=== PATIENT | female | born 1980 | race Caucasian/White ===

== ENCOUNTER 2016-12-03 14:00 | Observation (INO) | payer MEDICAID ==
--- NOTE | 2016-12-05 15:20 | HISTORY & PHYSICAL ---
History of Present Illness (Patel Roldan M.D.; 12/03/2016 1:49 PM) The patient is a 36 year old female who presents for evaluation of pelvic pain. The onset of the pain began gradually over time and has been occurring in an intermittent pattern for years (since Essure placed). The course has been increasing (over the past few months). The pain is described as moderate and characterized as a cramp. The pain is described as being located in the suprapubic area and does not radiate. Menses: regular. There is no relation of the pain to menses. Currently : no. The symptoms are relieved by analgesics. There has been no associated anorexia, dysuria, hematuria or vaginal discharge. Previous evaluations have included ultrasound (unremarkable) , screening, sexually transmitted disease (neg) and screening, Pap smear (neg). Additional reasons for visit: Preop Visit is described as the following: The patient feels well with minor complaints. Surgical procedures include: TVH. The reason for surgery is dysmenorrhea. Date of procedure: (12/09/2016). Planned anesthesia: general anesthesia. There have been no problems with general anesthesia, blood/blood products, or surgery in the past. Cardiac risk factors include: smoking. Risk factors for post operative thromboembolism includes: smoking. In depth conversation with the patient/guardian concerning the procedure, risks, complications, benefits, alternatives, success, possible failure and need for further surgery or intervention questions were answered and no guarantees were made. Problem List/Past Medical (Patel Roldan M.D.; 12/03/2016 1:51 PM) Asthma (J45.909) mild, no meds Endocarditis (I38)2009 Subacute; Secondary to Root Canal. Treated and resolved PUD (peptic ulcer disease) (K27.9) Psoriasis (L40.9) Renal failure, acute (N17.9)2009 Resolved Substance dependence (F19.20) Sober Since 2010 Allergies (Belia Anderson RN; 12/03/2016 1:34 PM) No Known Drug Allergies Family History (Belia Anderson RN; 12/03/2016 1:34 PM) Mother CVA, Osteoporosis, Lupus, MS, Asthma, Depression, COPD, Anxiety Paternal Grandmother Lung Cancer (Smoker) Father PUD Maternal Grandmother CAD @ 80's, RA Brother Asthma, PUD Sister Depression Cerebrovascular Accident Mother. Paternal Grandfather Alzheimer's Maternal Grandfather Psoriasis, Liver Cancer, Colon Cancer Paternal Aunt DM Type 2 Social History (Belia Anderson RN; 12/03/2016 1:34 PM) Tobacco use Current every day smoker. 1ppd Alcohol use Occasional alcohol use. Illicit drug use Uses marijuana. nightly Medication History (Belia Anderson RN; 12/03/2016 1:51 PM) Zantac (150MG Tablet, 1 Oral as needed) Active. Medications Reconciled / History (Patel Roldan M.D.; 12/03/2016 1:42 PM) Abortions/Miscarriages Sab x2 Deliveries (Parity) 3023 Delivery Mode vaginal Living Children (Number Of) 3 Pregnancies () 5 Past Surgical History (Patel Roldan M.D.; 12/03/2016 1:52 PM) Dilation and Curettage of [id number] Oral [id number] Full Dentures Tubal [id number] Essure Review of Systems (Patel Roldan M.D.; 12/03/2016 1:50 PM) General Present- Feeling well. Not Present- Night Sweats and Weight Loss > 10lbs.. Skin Present- Rash (Psoriasis). HEENT Present- Corrective lenses. Neck Not Present- Neck Mass. Respiratory Not Present- Chronic Cough and Shortness of Breath. Breast Not Present- Breast Mass, Breast Pain, Nipple Discharge and Skin Changes. Cardiovascular Not Present- Chest Pain. Gastrointestinal Present- Bloating and Diarrhea (since childhood). Not Present- Abdominal Pain and Bloody Stool. Female Genitourinary Not Present- Blood in Urine, Dysuria, Frequency, Hematuria , Incontinence, Urgency, Vaginal Discharge, Vaginal itching/burning and Vulvar itching. Musculoskeletal Not Present- Joint Redness. Neurological Not Present- Focal Neurological Symptoms. Endocrine Present- Hot flashes. Hematology Not Present- DVT, Enlarged Lymph Nodes and Spontaneous Bleeding. Vitals (Belia Anderson RN; 12/03/2016 1:34 PM) 12/03/2016 1:30 PM Weight: 150 lb Height: 65in Body Surface Area: 1.75 m Body Mass Index: 24.96 kg/m LMP: 11/28/2016 Pulse: 68 (Regular) Resp.: 16 (Unlabored) BP: 120/76 (Sitting, Left Arm, Standard) Physical Exam (Patel Roldan M.D.; 12/03/2016 2:37 PM) General General Appearance-Well Appearing. Build & Nutrition-Normal. Head and Neck Neck Global Assessment - full range of motion, No lymphadenopathy. Thyroid Gland Characteristics - normal size and consistency and no palpable nodules. ENMT Mouth and Throat Oral Cavity/Oropharynx - Oropharynx - no evidence of airway distress observed. Chest and Lung Exam Chest and lung exam reveals -Clear and quiet, even and easy respiratory effort with no use of accessory muscles. Cardiovascular Cardiovascular examination reveals -normal heart sounds, regular rate and rhythm with no murmurs. Abdomen Inspection Inspection of the abdomen reveals - No Hernias. Palpation/Percussion Palpation and Percussion of the abdomen reveal - Non Tender, No hepatosplenomegaly and No Palpable abdominal masses. Other Characteristics - No Costovertebral angle tenderness - Left, No Costovertebral angle tenderness - Right. Female Genitourinary External Genitalia Vulva - Characteristics - Normal. Labia Majora - Characteristics - Bilateral - Normal. Perineum - Intact. Clitoris - Normal. Labia Minora - Characteristics - Bilateral - Normal. Introitus - Characteristics - Non Tender. Bartholin's Gland - Bilateral - Non Tender. Urethra - Characteristics - Normal. Urethral Meatus - Characteristics - No Urethral Caruncle. Kill[place] Gland - Bilateral - Normal. Speculum & Bimanual Vagina - Vaginal Wall - Normal. Vaginal Lesions - None. Vaginal Mucosa - [place] and [place], No Secretions. Cervix - Characteristics - Parous, No Motion tenderness. Uterus - Characteristics - Non Tender. Position - Anteverted. Adnexa - Characteristics - Bilateral - Non Tender. Masses - No Adnexal Masses. Bladder - Not Tender. 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 Peripheral Vascular Lower Extremity Palpation - Tenderness - Bilateral - Non Tender. Edema - Bilateral - No edema. Neuropsychiatric Mental status exam performed with findings of-Oriented X3 with appropriate mood and affect. Lymphatic Axillary Supraclavicular Nodes: Bilateral - Supraclavicular Lymph Nodes - No supraclavicular lymphadenopathy. 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 (12/03/2016 2:39 PM) KELSEY
[2016-12-09] MEDS ORDERED: cefOXITIN 1 GM in NORMAL SALINE MINI-BAG+ 100 ML IV ONE (05:53)
[2016-12-09] MEDS ORDERED: cefOXITIN 1 GM/10 ML VIAL ONE (06:37)
[2016-12-09] MEDS ORDERED: ONDANSETRON HCL 4 MG/2 ML VIAL ONE (07:09)
[2016-12-09] MEDS ORDERED: METOCLOPRAMIDE HCL 10 MG/2 ML VIAL ONE (07:09)
[2016-12-09] MEDS ORDERED: MORPHINE SULFATE/PF 10 MG/10 ML VIAL ONE (07:09)
[2016-12-09] MEDS ORDERED: MIDAZOLAM HCL 2 MG/2 ML VIAL ONE (07:09)
[2016-12-09] MEDS ORDERED: DEXAMETHASONE 10 MG/ML VIAL ONE (07:09)
[2016-12-09] MEDS ORDERED: FENTANYL 100 MCG/2 ML VIAL ONE (07:10)
[2016-12-09] MEDS ORDERED: SUCCINYLCHOLINE CHLORIDE 200 MG/10 ML VIAL ONE (07:10)
[2016-12-09] MEDS ORDERED: ROCURONIUM BROMIDE 50 MG/5 ML VIAL IV ONE (07:10)
[2016-12-09] MEDS ORDERED: LIDOCAINE HCL 2% 20 ML VIAL ONE (07:11)
[2016-12-09] MEDS ORDERED: LIDOCAINE HCL 4% 160 MG/4 ML KIT ONE (07:11)
[2016-12-09] MEDS ORDERED: METHYLENE BLUE 10 MG/ML VIAL IV ONE (07:22)
[2016-12-09] MEDS ORDERED: NEOSTIGMINE METHYLSULFATE 10 MG/10 ML VIAL ONE (08:05)
[2016-12-09] MEDS ORDERED: GLYCOPYRROLATE 0.2 MG/ML VIAL ONE (08:05)
[2016-12-09] MEDS ORDERED: NALBUPHINE HCL 10 MG/ML AMP IV PRN ×2 (09:28→10:13)
[2016-12-09] MEDS ORDERED: NALOXONE HCL 0.4 MG/ML VIAL IV PRN ×6 (09:28→10:13)
[2016-12-09] MEDS ORDERED: ONDANSETRON HCL 4 MG/2 ML VIAL IV PRN ×2 (09:28→10:13)
[2016-12-09] MEDS ORDERED: DIPHENHYDRAMINE 50 MG/ML VIAL IV PRN ×2 (09:28→10:13)
[2016-12-09] MEDS ORDERED: DIPHENHYDRAMINE 25 MG CAPSULE PO PRN ×2 (09:28→10:13)
[2016-12-09] MEDS ORDERED: ACETAMINOPHEN 1,000 MG/100 ML VIAL IV SCH (09:30)
[2016-12-09] MEDS ORDERED: LACTATED RINGERS 1,000 ML IV SCH (10:00)
--- NOTE | 2016-12-09 10:01 | PROCEDURE NOTE: GYN ---
ART THERAPY SPECIALIST Procedure - Brief Operative Note Date of procedure: 12/09/16 Pre-Op Diagnosis: PELVIC PAIN Post-op diagnosis: same Procedure: TVH with bilateral salpingectomy Findings: Normal size uterus Implants: NONE Anesthesia Type: Block/ General Physician: MARCUS MACIEL Estimated Blood Loss: 100 Pathology: sent Sponge and instrument counts: correct Condition: stable Disposition: PACU Narrative: After placement of a spinal narcotic block in the pre-op area the patient is taken to the operating theater and placed supine on the operating table. General endotracheal anesthesia was induced. She is placed in dorsal lithotomy position using Dave stirrups. Vagina and perineum are prepped, her bladder is drained, and then stained with indigo carmine dye. The patient is draped in the usual sterile fashion. The cervix is visualized and grasped with a double- tooth tenaculum. The vagina was incised circumferentially around the cervix. Using sharp and blunt dissection the anterior peritoneal reflection was identified and entered into sharply. A long retractor is then entered into this incision and the bladder is elevated. Posterior cul-de-sac was then entered into sharply and a long weighted retractor is entered into this incision. The uterosacral ligaments on both left and right sides are clamped cut and tied in a Farrukh fashion with 0 Vicryl sutures and tagged. Cardinal ligaments on both left and right sides are then clamped cut and ligated in Farrukh fashion with 0 Vicryl sutures. Uterine vessels on both left and right sides were then clamped cut and ligated in Farrukh fashion with 0 Vicryl sutures. Uterus is delivered posteriorly and the utero-ovarian round ligament complex on left and right sides are clamped cut and ligated in Farrukh fashion with 0 Vicryl sutures. The uterus and cervix are removed and submitted to pathology. The left fallopian tube was mobilized and then the mesosalpinx is clamped cut and ligated in Farrukh fashion with 0 Vicryl sutures. The fallopian tube is submitted to pathology. The right fallopian tube is mobilized and the right mesosalpinx was clamped cut and ligated in Farrukh fashion with 0 Vicryl sutures. The fallopian tube is submitted to pathology. The posterior vaginal cuff was closed with a running interlocking 0 Vicryl suture. After assuring excellent hemostasis of all vascular pedicles the uterosacral ligament tags were attached to the lateral vaginal cuff, the anterior peritoneal reflection and exited the posterior cuff in the midline. The vaginal cuff is closed with multiple figure of eight 0-Vicryl sutures. The uterosacral ligament tags are tied in the midline with excellent support of the vaginal cuff. A Dean catheter is placed to down drain, the patient placed supine on the operating table, awakened by anesthesia and taken to PACU.
[2016-12-09] MEDS ORDERED: POTASSIUM CHLORIDE/D5 0.45%NAC 1,000 ML IV SCH (10:13)
[2016-12-09] MEDS ORDERED: SIMETHICONE CHEW 80 MG TABLET PO PRN (10:13)
[2016-12-09] MEDS: NICOTINE 14 MG PATCH TRANSDERM SCH (10:40)
[2016-12-09] MEDS: ACETAMINOPHEN 1,000 MG/100 ML VIAL IV SCH ×2 (15:29→21:37)
[2016-12-09] MEDS ORDERED: NORMAL SALINE FLUSH 10 ML DISP.SYRIN IV PRN (17:26)
--- NOTE | 2016-12-09 17:29 | PROGRESS NOTE: GYN Post-op ---
Assessment and Plan - Date of Encounter Date of Encounter: 12/09/16 (1) S/P gynecological surgery, follow-up exam Problem details: S/P TVH Status: Acute Assessment and plan: Stable, increase po. Current Visit: Yes - Time Spent With Patient Total time spent with greater than 50% in coordination of care (as documented) at patient's floor/unit and/or counseling patient: OFFICIAL GREETER: Post-op Note Subjective Interval History: Denies issues since surgery, requested catheter be removed this afternoon. Wants regular food. Post-op Day: 0 Patient reports: appetite normal, pain well controlled, ambulating normally, no nausea, no flatus OFFICIAL GREETER: Post-op Note Objective - Latest Vital Signs and I&O Latest Vital Signs/I&O: Vital Signs Temp 37.3 C 12/09/16 15:28 Pulse 49 L 12/09/16 15:21 Resp 12 12/09/16 14:23 BP 112/43 12/09/16 15:21 Pulse Ox 94 12/09/16 15:21 Intake & Output 12/08/16 12/09/16 12/09/16 17:59 05:59 17:59 Intake Total 2600 Output Total 500 Balance 2100 Weight 70.307 kg Intake: IV 2200 Right Hand 2200 Oral 400 Output: Urine 500 Straight 75 Uretheral (Dean) 325 Other: Urine Color Indigo Straight Yellow Uretheral (Dean) Yellow Voiding Method Indwelling Catheter - Exam Lungs: Bilateral: normal Heart Rhythm: Present: regular Extremities: Absent: tenderness Abdomen: Present: soft. Absent: distention Bowel sounds: present
[2016-12-09] MEDS: DOCUSATE SODIUM 100 MG CAPSULE PO SCH (20:14)
[2016-12-10] MEDS: ACETAMINOPHEN 1,000 MG/100 ML VIAL IV SCH ×2 (02:38→08:51)
[2016-12-10 04:30] VITALS: TEMP 98.6; O2SAT 95
[2016-12-10 05:35] LABS: BASOPHILS 0.5 % (0.0-2.0); EOSINOPHILS 0.6 % (0.0-6.0); EOSINOPHILS# 0.1 X 10^3uL (0.0-0.4); HEMOGLOBIN 13.5 g/dL (12.0-16.0); LYMPHOCYTES 20.6 % (20.0-40.0); LYMPHOCYTES# 1.8 X 10^3uL (0.8-3.8); MEAN CORPUSCULAR HEMOGLOBIN 29.7 pg (29.0-35.0); MEAN PLATELET VOLUME 9.1 fL (7.4-10.4); MONOCYTES 8.8 % (2.0-10.0); MONOCYTES# 0.8 X 10^3uL (0.2-1.0); NEUTROPHILS 69.5 % (54.0-75.0); PLATELET COUNT 156 X 10^3uL (130-440); RED BLOOD COUNT 4.55 X 10^6uL (4.20-6.10); RED CELL DISTRIBUTION WIDTH 12.4 % (11.5-14.5); WHITE BLOOD COUNT 8.7 X 10^3uL (3.9-10.7)
[2016-12-10 05:41] LABS: BLOOD UREA NITROGEN 9 mg/dL (7-17); CALCIUM 8.4 mg/dL (8.4-10.2); CHLORIDE 106 mmol/L (98-107); EST GLOMERULAR FILTRATION RATE > 60 mL/min; GLUCOSE 83 mg/dL (70-100); POTASSIUM 3.9 mmol/L (3.5-5.1); SODIUM 137 mmol/L (137-145)
[2016-12-10 06:04] VITALS: BP 118/62; PULSE 49; RESP 13
--- NOTE | 2016-12-10 08:05 | DC SUMMARY: Obstetrical/GYN ---
Discharge Summary: Surg/OB Provider: Date of Admission: 12/09/16 Admitting Provider: MARCUS ROLDAN MD Attending Provider: MARCUS ROLDAN MD Discharging Provider: MARCUS ROLDAN MD Primary Care Provider: Discharge Date: 12/10/16 - Diagnosis (1) S/P gynecological surgery, follow-up exam Status: Acute Hospital Course: Ms. KHAN is a 36 year old female admitted for vaginal hysterectomy for pain since placement of Essure Devices. Her surgery was uncomplicated and postoperatively she did well with good return of bowel and bladder function. She is discharged to home on the first day in good condition. Discharge - Patient/Caregiver Discharge Instructions Activity Level: Pelvic rest Diet: Regular Additional Instructions: Marcus Roldan M.D. [address], [address] [place] [address] PHONE [phone] FAX [phone] Reviewed 02/2015 Post Hysterectomy and/or Vaginal Repair 1. Please make an appointment for your first post operative check up to see me one week from the date of surgery. Your second post operative appointment should be made six weeks from the date of your surgery. Call the clinic to make these appointments. Do not hesitate to call me, or my nurse, with any questions or problems. 2. Get plenty of rest. You will tire more easily than you might expect. It would be best for you to restrict your activities until after your first post operative visit. As you feel up to it, you may increase your activity. Use your own judgment, listen to your body, and take frequent short rests as you become tired. Your restrictions will probably be lifted after your second post operative visit. 3. You will receive a prescription for pain pills upon hospital discharge. I recommend you alternate these with ibuprofen. If needed, take as directed. Contact me if strength is inadequate. Do not drive a car or operate machinery as long as you are taking narcotic pain medication. 4. No heavy lifting or straining. Do not lift anything more than 20 pounds. 5. You may climb stairs but try to make the trip worthwhile. Do not walk up and down excessively. 6. Take only showers for the first two weeks. Sitz baths may be taken to help relieve perineal discomfort. Baths may be taken after two weeks if desired. 7. You may have vaginal spotting for approximately four to six weeks. There may be an odor or you may pass suture material. Use mini or maxi pads. The bleeding should not be heavier than a normal period. Report any bleeding heavier than a period to me immediately. 8. Bleeding may be heavier after activity. If your bleeding does not slow down after resting, please notify me immediately. 9. No pelvic activity. No tampons, douching or intercourse. 10. If bladder surgery was performed, it may take days or even weeks for your bladder to perform adequately. You may go home with a bladder catheter which will be removed the week after surgery. Do not go longer than four hours without voiding during the day time. 11. If you feel constipated, use Milk of Magnesia at bedtime. 12. Eat a well-balanced diet. You should drink 6-8 glasses of fluid per day. Fresh fruits, green leafy vegetables, bran cereals and whole wheat breads should be eaten to prevent constipation. If necessary, stool softeners may be obtained at the pharmacy without a prescription. Use as directed. 13. Report any vomiting or fever above 100.5 degrees immediately. 14. I can be reached through the hospital nursing station ([phone]), Charge Nurse ([phone]) or Hospital Press Shop Supervisor ([phone]). Marcus Roldan M.D. Follow up: MARCUS ROLDAN MD [ACTIVE (Staff Physician)] - 7 Days Overall discharge status: stable Home Medications: Acetaminophen 325 - 650 mg PO Q4H PRN #30 tab PRN Reason: Pain, mild to moderate oxyCODONE HCL IR [Oxy Ir*] 5 mg PO Q4H PRN #30 tablet PRN Reason: Pain, Severe Able To Take Po Disposition: HOME, SELF-CARE Obstetrical/NET ARCHITECT Discharge Exam - Latest Vital Signs and I&O Latest Vital Signs/I&O: Vital Signs Temp 37.0 C 12/10/16 06:00 Pulse 49 L 12/10/16 06:00 Resp 13 12/10/16 06:00 BP 118/62 12/10/16 06:00 Pulse Ox 95 12/10/16 06:00 Intake & Output 12/09/16 12/10/16 12/10/16 17:59 05:59 17:59 Intake Total 3400 700 Output Total 500 1050 Balance 2900 -350 Weight 70.307 kg Intake: IV 2200 Right Hand 2200 Oral 1200 700 Output: Urine 500 1050 Straight 75 Uretheral (Dean) 325 Other: Urine Appearance Clear Urine Color Indigo Yellow Straight Yellow Uretheral (Dean) Yellow Voiding Method Indwelling Catheter Bedside Commode # Voids 0 4 # Bowel Movements 0 - Exam Lungs: Bilateral: normal Heart Rhythm: Present: regular Extremities: Absent: tenderness Abdomen: Present: soft. Absent: distention Bowel sounds: present Discharge Summary Data - Medication History Medication History: Home Medications Ranitidine HCl 150 mg PO DAILY 12/03/16 Amoxicillin 1,000 mg PO BID 12/09/16 Clarithromycin 500 mg PO BID 12/09/16 Omeprazole Magnesium [Prilosec Otc] 20 mg PO BID 12/09/16 Inpatient Medications 12/09/16 10:13 Diphenhydramine [Benadryl Inj] 25 mg IV Q4H PRN Diphenhydramine [Benadryl] 25 mg PO Q4H PRN Nalbuphine HCl [Nubain] 2.5 mg IV Q15M PRN Naloxone HCl [Narcan] 0.05 mg IV Q5M PRN Naloxone HCl [Narcan] 0.1 mg IV Q5M PRN Naloxone HCl [Narcan] 0.2 mg IV Q5M PRN Ondansetron HCl [Zofran] 4 mg IV Q6H PRN Simethicone Chew [Mylicon] 80 mg PO Q4H PRN oxyCODONE HCL IR [Oxy Ir] 5 mg PO Q3H PRN 12/09/16 11:00 Nicotine [Nicoderm Patch] 14 mg TRANSDERM DAILY 12/09/16 15:30 Acetaminophen [Ofirmev Inj] 1,000 mg IV Q6H 12/09/16 17:26 Normal Saline Flush [Saline Flush Buff Cap] 10 ml IV PRN PRN 12/09/16 21:00 Docusate Sodium [Colace] 100 mg PO BID Procedures and tests throughout hospitalization: Completed Lab Orders 12/10/16 05:00 BASIC METABOLIC PANEL [CHEM] AMDRAW CBC AUTO DIF, MDIF/RMOR IF IND [HEM] AMDRAW Pending Orders 12/03/16 14:00 Smoking Cessation Teaching by RT [RT] Routine 12/03/16 16:11 Resuscitation Status Routine 12/09/16 05:53 Anesthesia Type . Insert Peripheral IV ONCE NPO After midnight 0000 Pre-op by anesthesia . Sequential Compression Device WHILE IN BED 12/09/16 09:28 Yasmin hugger if temp <34 C PRN Did pt have a spinal/epidural? . Maintain IV access post spinal CONTINUOUS Monitor End Tidal CO2 CONTINUOUS Narcan @ bedside x24h after sp .x24hrs Oxygen by Nasal Cannula TITRATE TO >90% Titrate Oxygen TITRATE B/W 90-95% Vital Signs Q1HX12,Q2H Warm blankets if temp<36 C PRN 12/09/16 10:13 Admit: Observation Routine Incentive Spirometry Q1H Intake and Output QSHIFT I&O Turn, Cough, and Deep Breathe Q1H Diphenhydramine [Benadryl Inj] 25 mg IV Q4H PRN Diphenhydramine [Benadryl] 25 mg PO Q4H PRN Nalbuphine HCl [Nubain] 2.5 mg IV Q15M PRN Naloxone HCl [Narcan] 0.05 mg IV Q5M PRN Naloxone HCl [Narcan] 0.1 mg IV Q5M PRN Naloxone HCl [Narcan] 0.2 mg IV Q5M PRN Ondansetron HCl [Zofran] 4 mg IV Q6H PRN Simethicone Chew [Mylicon] 80 mg PO Q4H PRN oxyCODONE HCL IR [Oxy Ir] 5 mg PO Q3H PRN 12/09/16 11:00 Nicotine [Nicoderm Patch] 14 mg TRANSDERM DAILY 12/09/16 15:30 Acetaminophen [Ofirmev Inj] 1,000 mg IV Q6H 12/09/16 17:26 Normal Saline Flush [Saline Flush Buff Cap] 10 ml IV PRN PRN 12/09/16 21:00 Docusate Sodium [Colace] 100 mg PO BID 12/09/16 Breakfast Regular [DIET] Labs on day of discharge: Labs from last 24 hours 12/10/16 05:00 WBC 8.7 RBC 4.55 Hgb 13.5 Hct 41.0 MCV 90.0 MCH 29.7 MCHC 33.0 RDW 12.4 Plt Count 156 MPV 9.1 Neutrophils % 69.5 Lymphocytes % 20.6 Eosinophils % 0.6 Basophils % 0.5 Neutrophils # 6.0 Lymphocytes # 1.8 Monocytes 8.8 Monocytes # 0.8 Eosinophils # 0.1 Basophils # 0.0 Sodium 137 Potassium 3.9 Chloride 106 Carbon Dioxide 26 BUN 9 Creatinine 1.0 GFR Calculation > 60 Glucose 83 Calcium 8.4
[2016-12-10] MEDS: NICOTINE 14 MG PATCH TRANSDERM SCH (08:51)
[2016-12-10] MEDS: DOCUSATE SODIUM 100 MG CAPSULE PO SCH (08:58)
== END 2016-12-10 10:10 | disposition home or self-care (01) ==
LOC: IN 12-09 05:57
PROVIDERS: ADMIT Obstetrics & Gynecology; ATTEND Obstetrics & Gynecology
DX: N72 Inflammatory disease of cervix uteri (principal); R10.2 Pelvic and perineal pain; K58.9 Irritable bowel syndrome, unspecified; J45.909 Unspecified asthma, uncomplicated; K27.9 Peptic ulcer, site unspecified, unspecified as acute or chronic, without hemorrhage or perforation; L40.9 Psoriasis, unspecified; Z72.0 Tobacco use; F12.90 Cannabis use, unspecified, uncomplicated
CPT/HCPCS: 36415; 80048; 85025; G0378; G0379; J0694; J1100; J2250; J2405; J2710; J2765; J3480; S4990